=== PATIENT | male | born 1990 | race Caucasian/White ===

== ENCOUNTER 2021-12-18 13:27 | Emergency (ER) | payer OTHER ==
[2021-12-18 14:51] LABS: HEMOGLOBIN 15.4 gm/dl (14.0-17.5); RED BLOOD COUNT 4.98 M/UL (4.20-5.50); WHITE BLOOD COUNT 5.2 K/UL (4.5-11.0)
[2021-12-18 15:12] LABS: BUN/CREATININE RATIO 8 (0-10)
[2021-12-18] MEDS ORDERED: NORFLEX 100 MG100 MG PO (15:28)
[2021-12-18] MEDS ORDERED: Voltaren Gel 1 % TOP (15:28)
[2021-12-18] MEDS ORDERED: MEDROL DOSEPAK 24 MG PO (15:28)
== END 2021-12-18 16:00 | disposition home or self-care (01) ==
LOC: ER1 13:27
PROVIDERS: Nurse Practitioner
DX: M54.41 Lumbago with sciatica, right side (principal)
CPT/HCPCS: 72131; 80053; 81001; 85025; 85652; 86140; 96372; 99284; J1100; J1885